=== PATIENT | male | born 1970 | race Caucasian/White ===

== ENCOUNTER 2018-07-10 21:47 | Emergency (ER) | payer OTHER ==
[~2018-07-10] VITALS: Ht 172.7 cm; Wt 92.9 kg
[2018-07-10 21:54] VITALS: Ht 172.7 cm; Wt 92.9 kg
--- NOTE | 2018-07-10 22:20 | ERD ---
ER Documentation Chief Complaint Chief Complaint Pt c/o that he has broken glass in his right wrist. x3 months ago. +pain. HPI 47-year-old male, right-handed, previously healthy, presents the emergency department, complaining of a painful lump in the anterior aspect of the right wrist after sustaining an injury 3 months ago with a glass. The patient suspects that a piece of glass is embedded because the pain is sharp, worsened by palpation and extension of the wrist. ROS All systems reviewed and are negative except as per history of present illness. Allergies Allergies: Coded Allergies: No Known Drug Allergy (Verified Allergy, Unknown, 07/10/18) PMhx/Soc Medical and Surgical Hx: pt denies Medical Hx History of Surgery: Yes (nasal sx) Anesthesia Reaction: No Hx Alcohol Use: No Hx Substance Use: No Hx Tobacco Use: No Smoking Status: Never smoker FmHx Family History: No diabetes, No coronary disease Physical Exam Vitals Vital Signs Date Temp Pulse Resp B/P (MAP) Pulse Ox O2 O2 Flow FiO2 Time Delivery Rate 07/11/18 98.8 66 18 138/91 96 00:15 (107) 07/10/18 98.6 80 16 165/98 96 21:54 (120) Physical Exam Const: No acute distress Head: Atraumatic Eyes: Normal Conjunctiva ENT: Normal External Ears, Nose and Mouth. Neck: Full range of motion. No meningismus. Resp: Clear to auscultation bilaterally Cardio: Regular rate and rhythm, no murmurs Abd: Soft, non tender, non distended. Normal bowel sounds Skin: No petechiae or rashes Back: No midline or flank tenderness Ext: No cyanosis, or edema, right wrist with 1 cm painful nodule over the anterior aspect. No erythema, no fluctuance no warmth. Neur: Awake and alert Psych: Normal Mood and Affect Results 24 hrs Patient: MARISELA SHABAZZ : 1970 Age: 47 Sex: M MR #: [id number] DOS: 07/10/182215 Ordering MD: ANDRA ANDERS MD Location: [facility] Room/Bed: PROCEDURE: XR Right Wrist. CLINICAL INDICATION: Foreign body? TECHNIQUE: Three views of the right wrist were obtained. COMPARISON: No prior studies are available for comparison. FINDINGS: There is no acute fracture or dislocation. The joint spaces are maintained. No erosive changes are visualized. The carpal bones are intact. There is a linear structure measuring about 8 mm within the superficial subc utaneous soft tissues of the volar wrist at the level of the proximal carpal row. RPTAT: ZZ IMPRESSION: 1. Linear 8 mm radiopaque foreign body within the superficial subcutaneous soft tissues of the volar wrist at the level of the proximal carpal row. 2. No acute fracture. Procedures/MDM During the visit, the patient was evaluated for other possible injuries including fracture, nerve/tendon/ ligament damage, no signs of acute local infection, less likely systemic infectious process. Due to the location of the foreign body, I recommend conservative management for now. ER return precautions including infection, worsening of pain were discussed with patient. Follow-up in the next 2 days with the primary care provider. Disclaimer: Inadvertent spelling and grammatical errors are likely due to EHR/dictation software use and do not reflect on the overall quality of patient care. Also, please note that the electronic time recorded on this note does not necessarily reflect the actual time of the patient encounter. Departure Diagnosis: Primary Impression: Retained foreign body Condition: Stable Additional Instructions: Muchas manpreet por [facility] para khalil servicio. Esperamos que en khalil visita a la mauro de emergencia khalil problema medico haya sido solucionado y que se sienta mucho mejor. Para estar seguros que khalil mejoria sigue en proceso, le pedimos el favor de hacer stevenson tremayne de seguimiento medico con khalil doctor primario en los proximos 2-4 reina. Lleve con usted estos documentos y las medicinas recetadas. Si chu sintomas empeoran, NO SE ESPERE, por favor regrese a mauro de emergencia INMEDIATAMENTE. En christianne que usted no tenga un mdico de atencin primaria: Llame al mdico o clnica comunitaria de referencia que aparece abajo mira las horas de consultorio para hacer stevenson tremayne para que le vean. CLINICAS: [facility] [phone] [facility] [phone] [facility] [phone] [place] [phone] [place] [id number] [phone] [facility]. [phone] ANDRA MCKEON MD Jul 10, 2018 22:20
[2018-07-11 00:15] VITALS: BP 138/91; PULSE 66; RESP 18
== END 2018-07-11 00:16 | disposition home or self-care (01) ==
LOC: FTE 21:47
DX: M25.531 Pain in right wrist (principal)
CPT/HCPCS: 73110; Z7502